=== PATIENT | female | born 1975 | race Caucasian/White ===

== ENCOUNTER 2024-10-01 10:17 | Outpatient (CLI) | payer BC, SELFPAY ==
--- NOTE | 2024-10-13 12:16 | W.PM.SLEEP ---
Sleep Study Details Details Interpreting Provider: Malathi Date of Sleep Study: 10/01/24 Sleep Study Details: STUDY TYPE:? Home unattended ? BMI:? Not recorded ORDERING PROVIDER:? Malathi INDICATION:? Concerned about sleep apnea ? SLEEP SUMMARY:? 473 minutes monitored RESPIRATORY SUMMARY:? AHI 12.2 Low oxygen 87 0.1% of study oxygen less than 90% Snoring 92.4% PERIODIC LIMB MOVEMENTS OF SLEEP:? Not recorded CARDIAC:? Range 58-112, mean 70.6 beats per minute IMPRESSION:? Mild obstructive sleep apnea RECOMMENDATION: Treatment options include CPAP dental appliance and/or airway expansion surgery.-
== END 2024-10-01 10:18 | disposition home or self-care (01) ==
LOC: SLEEP 10:20
PROVIDERS: Visit Provider Otolaryngology
DX: G47.33 Obstructive sleep apnea (adult) (pediatric) (principal)
CPT/HCPCS: 95806

== ENCOUNTER 2024-11-05 08:44 | Outpatient (CLI) | payer BC, SELFPAY ==
--- NOTE | 2024-11-05 09:00 | CRLHL7_ITS ---
For Patients: As a result of the Century Cures Act, medical imaging exams and procedure reports are released immediately into your electronic medical record. You may view this report before your referring provider. If you have questions, please contact your health care provider. Indication: CHRONIC SINUSITIS, CONGESTION AND LOSS OF HEARING Technique: Performed without IV contrast Comparison: None available Findings: Frontal sinuses: Clear. Ethmoid sinuses: Clear. Maxillary sinuses: Minimal mucosal thickening noted bilaterally. The maxillary sinus drainage pathways are patent on both sides. Sphenoid sinuses: Clear, including both sphenoethmoidal recesses. Nasal Cavity: Slight rightward curvature of the nasal septum noted. No polyps. Nasal turbinate mucosa appears unremarkable. No TMJ abnormalities identified. The visualized portions of the orbits, intracranial contents and upper soft tissue neck are grossly negative. Impression: 1. Minimal maxillary sinus disease. 2. Slight rightward curvature of the nasal septum. Please note that all CT scans at this facility use dose modulation, iterative reconstruction, and/or weight-based dosing when appropriate to reduce radiation dose to as low as reasonably achievable. Dictated by Taras Hurt MD @ 11/05/2024 9:18:54 AM (Electronically Signed)
== END 2024-11-05 08:45 | disposition home or self-care (01) ==
LOC: CT 08:45
PROVIDERS: Visit Provider Otolaryngology
DX: J32.9 Chronic sinusitis, unspecified (principal); J32.0 Chronic maxillary sinusitis; J34.2 Deviated nasal septum
CPT/HCPCS: 70486